=== PATIENT | male | born 1985 | race Caucasian/White ===

== ENCOUNTER 2018-04-12 13:37 | Observation (INO) ==
--- NOTE | 2018-04-12 14:14 | Emergency Department Note ---
Medical Decision Making Vital Signs: 04/12/18 14:02 Temperature 98.1 F Temperature Source Temporal Artery Scan Pulse Rate [Right Brachial] 83 Respiratory Rate 20 Blood Pressure [Right Arm] 133/84 Blood Pressure Mean [Right Arm] 100 Blood Pressure Source [Right Arm] Automatic Cuff Blood Pressure Position [Right Arm] Sitting 02 Sat by Pulse Oximetry 98 Oxygen Delivery Method Room Air [facility] [place] - General Stated complaint: stomach pain Time Seen by Provider: 04/12/18 14:14 Mode of Arrival: Family Vehicle Source of Information: Patient Limitations: No Limitations Description of Symptoms (Recalled from Triage Doc. by RN): C/O DULL INTERMITTENT PAIN IN MID EPIGASTRIC AREA WITH INTERMITTENT NAUSEA TODAYU. PATIENT STATES HE WAS MAKING A PEANUTBUTTER AND JELLY SANDWICH HE BROKE THE JAR AND AFRAID HE DIDNT GET ALL THE GLASS OUT OF HIS JELLY HEENT Symptoms (Recalled from RN notes): No Resp Symptoms (Recalled from RN notes): No Skin Symptoms (Recalled from RN notes): No MS Symptoms (Recalled from RN notes): No Functional Status (Recalled from RN notes): N/A - Related Data Home Medications Medication Instructions Recorded Confirmed No Known Home Medications 04/12/18 04/12/18 Allergies Allergy/AdvReac Type Severity Reaction Status Date / Time No Known Allergies Allergy Verified 04/12/18 14:06 - Worker's Comp Is this a Worker's Comp case?: No [facility] History - Social History Smoking Status: Current every day smoker Tobacco Type: cigarettes Alcohol Intake: current - Psychiatric History Expresses thoughts of harming self/others: None Suicide Plan Description: No Plan
--- NOTE | 2018-04-12 14:37 | Emergency Department Note ---
ED Disposition Clinical Impression: Gastrointestinal foreign body Disposition: Still a Patient Condition on Discharge: Good - Critical Care Critical Care Time: No Attestation: On 04/12/18, the high probability of a clinically significant, sudden or life threatening deterioration of the following system(s) required my full and direct attention, intervention and personal management. The time I documented below is in addition to time spent performing reported procedures but includes the following listed in this critical care notation. Medical Decision Making - Jose Inquiry Pt receiving controlled substance: No Vital Signs: 04/12/18 14:02 04/12/18 14:33 04/12/18 17:11 Temperature 98.1 F 98.2 F 98.2 F Temperature Source Temporal Artery Scan Oral Oral Pulse Rate 72 Pulse Rate [Right Brachial] 83 77 Respiratory Rate 20 16 16 Blood Pressure 124/70 Blood Pressure [Right Arm] 133/84 146/100 Blood Pressure Mean [Right Arm] 100 115 Blood Pressure Source Automatic Cuff Blood Pressure Source [Right Arm] Automatic Cuff Automatic Cuff Blood Pressure Position Sitting Blood Pressure Position [Right Arm] Sitting Sitting 02 Sat by Pulse Oximetry 98 99 Oxygen Delivery Method Room Air Room Air Room Air - Lab Data Lab Results 04/12/18 15:15: WBC 6.0, RBC 5.49, Hgb 16.9, Hct 52.4 H, MCV 95.5 H, MCH 30.9, MCHC 32.3, RDW 12.5, Plt Count 190, MPV 7.8, Neut % (Auto) 66.1, Lymph % (Auto) 25.0, [place] % (Auto) 7.1, Eos % (Auto) 1.3, Baso % (Auto) 0.5, Neut # (Auto) 3.9 , Lymph # (Auto) 1.5, [place] # (Auto) 0.4, Eos # (Auto) 0.1, Baso # (Auto) 0.0 04/12/18 15:15: Sodium 141, Potassium 4.3, Chloride 101, Carbon Dioxide 31, Anion Gap 13.3, BUN 13, Creatinine 1.06, Estimated Creat Clear 96, Estimated GFR 81, Est GFR ( Amer) 98, Glucose 94, Calcium 9.8, Total Bilirubin 0.6 , AST 20, ALT 25, Alkaline Phosphatase 117 H, Total Protein 8.5 H, Albumin 4.7, Globulin 3.8 H, Albumin/Globulin Ratio 1.2, Lipase 140 Result diagrams: 04/12/18 15:15 04/12/18 15:15 Orders (Tests/Meds): ED MEDICATIONS Generic Name Dose Route Start Last Admin Trade Name Freq PRN Reason Stop Dose Admin Sodium Chloride 1,000 mls @ 125 mls/hr 04/12/18 17:00 04/12/18 18:44 Sod Chlor 0.9% 1000ml Bag IV 05/12/18 16:59 125 mls/hr .Q8H JOLLY Administration Pantoprazole Sodium 80 mg/ 100 mls @ 10 mls/hr 04/12/18 19:15 04/12/18 20:03 Sodium Chloride IV 04/15/18 19:14 10 mls/hr .Q10H JOLLY Administration Magnesium Citrate 1 bot 04/12/18 19:14 04/12/18 20:03 Magnesium Citrate 10oz Bottle PO 04/12/18 19:15 1 bot ONCE ONE Administration Nicotine 21 mg 04/12/18 18:30 04/12/18 18:32 Nicoderm 21mg/24hr Patch TD 05/12/18 18:29 21 mg DAILY JOLLY Administration Sodium Chloride 10 ml 04/12/18 16:52 Saline Flush 10ml Syringe IV 05/12/18 16:51 NEEDED PRN Maintain IV Site Discontinued Medications Generic Name Dose Route Start Last Admin Trade Name Twan PRN Reason Stop Dose Admin Sodium Chloride 1,000 mls @ 999 mls/hr 04/12/18 15:00 04/12/18 17:46 Sod Chlor 0.9% 1000ml Bag IV 04/12/18 16:00 999 mls/hr .Q1H1M JOLLY Administration ORDERS Category Date Time Status KUB (single view) [XR KUB] Stat Exams 04/12/18 16:21 Taken XR acute abdomen series Routine Exams 04/13/18 06:00 Ordered Complete Blood Count Auto Diff AMLAB Lab 04/13/18 06:00 Ordered - Radiology Data #1 Image(s): KUB Image Reviewed: Yes I reviewed the patient's radiology image I do not see any definite foreign body on the KUB. I discussed with Dr. Henriquez. He still requests acute abdominal series in the morning. - CT Data CT Scan: Abdomen, Pelvis Time Received: 16:[address] Reviewed: Yes: I have viewed the radiologist's interpretation Findings Narrative: 13 mm foreign body in the small intestine consistent with shard of glass without evidence of perforation. - Physician Consults Physician Consulted: Florence Time: 16:32 Reason -: Admission Comment/Response: Admit for observation. If foreign body is visible on KUB, repeat acute abdominal series in the morning. General Adult HPI - General Stated complaint: stomach pain Time Seen by Provider: 04/12/18 14:14 Mode of Arrival: Family Vehicle Source of Information: Patient Limitations: No Limitations Description of Symptoms (Recalled from ER Triage Doc. by RN): C/O DULL INTERMITTENT PAIN IN MID EPIGASTRIC AREA WITH INTERMITTENT NAUSEA TODAYU. PATIENT STATES HE WAS MAKING A PEANUTBUTTER AND JELLY SANDWICH HE BROKE THE JAR AND AFRAID HE DIDNT GET ALL THE GLASS OUT OF HIS JELLY - History of Present Illness HPI narrative: Last night the patient was eating a peanut butter and jelly sandwich, when making the same which the bottom of the jelly jar broke off. He says is one large chunk of glass. He did not feel any crunching of glass in the sandwich. He has had epigastric pain since this morning. He now wonders whether he swallowed some glass. No vomiting or vomiting of blood. No passage of blood in the stool. No diarrhea. No fever. He has had nausea all day. He has a dull ache in the epigastric area and some sharp pains when he moves. No history of abdominal surgery. He is not a heavy drinker, no prescription medications or [id number] medications. - Related Data Home Medications Medication Instructions Recorded Confirmed No Known Home Medications 04/12/18 04/12/18 Allergies Allergy/AdvReac Type Severity Reaction Status Date / Time No Known Allergies Allergy Verified 04/12/18 14:06 [facility] History I have reviewed the patient's past medical history: Yes - Social History Educational Level: Completed High School Smoking Status: Current every day smoker Tobacco Type: cigarettes Alcohol Intake: never - Psychiatric History Expresses thoughts of harming self/others: None Suicide Plan Description: No Plan ROS Obtained: Yes All systems reviewed & no additional complaints - Constitutional Constitutional: Denies fever(s) - Cardiovascular Cardiovascular: Denies chest pain - Gastrointestinal Gastrointestingal: Reports: abdominal pain, nausea. Denies: diarrhea, vomiting blood, bright red blood in stools, black, tarry stools, vomiting Physical Exam - General General appearance: alert, in no apparent distress - Head Head exam: atraumatic, normocephalic, normal inspection - Eye Eye exam: Present: normal appearance, PERRL, EOMI - ENT ENT exam: Present: normal exam, normal oropharynx, mucous membranes moist, TM's normal bilaterally, normal external ear exam - Neck Neck exam: Present: normal inspection, full ROM, trachea midline. Absent: meningismus, lymphadenopathy - Chest Chest inspection: Present: normal inspection, symmetric chest wall rise. Absent : tenderness - Respiratory Respiratory exam: Present: normal lung sounds bilaterally. Absent: respiratory distress - Cardiovascular Cardiovascular exam: Present: regular rate, normal rhythm. Absent: JVD - Abdominal Exam Abdominal exam: Present: soft, tenderness, normal bowel sounds. Absent: distention, guarding Abdominal tenderness: Present: epigastrium - Extremities Exam Extremities exam: Present: normal inspection, full ROM, normal capillary refill. Absent: calf tenderness - Back Exam Back exam: Present: normal inspection. Absent: tenderness - Neurological Exam Neurological exam: Present: alert, oriented X3 - Psychiatric Psychiatric exam: Present: normal affect, normal mood - Skin Skin exam: Present: warm, dry, intact, normal color
[2018-04-12 15:34] LABS: Basophils % 0.5 % (0.1-2.0); Eosinophils # 0.1 K/mm3 (0.0-0.4); Eosinophils % 1.3 % (0.1-12.0); Hematocrit 52.4 % (42.0-52.0); Hemoglobin 16.9 g/dL (14.1-18.0); Lymphocytes # 1.5 K/mm3 (0.7-4.5); Mean Corpuscular HGB Conc 32.3 g/dL (31.8-35.4); Mean Corpuscular Hemoglobin 30.9 pg (27.0-31.2); Mean Corpuscular Volume 95.5 fl (80-94); Mean Platelet Volume 7.8 fl (7.4-10.4); Monocytes # 0.4 K/mm3 (0.1-1.0); Monocytes % 7.1 % (1.7-9.3); Neutrophils # 3.9 K/mm3 (1.8-7.8); Neutrophils % 66.1 % (37.0-80.0); Platelet Count 190 K/mm3 (142-424); Red Blood Count 5.49 M/mm3 (4.60-6.20); Red Cell Distribution Width 12.5 % (11.5-17.5)
[2018-04-12 15:40] LABS: Albumin Level 4.7 gm/dL (3.4-5.0); Albumin/Globulin Ratio 1.2 (1.1-1.8); Anion Gap 13.3 mEq/L (5-15); Bilirubin,Total 0.6 mg/dL (0.2-1.0); Calcium 9.8 mg/dL (8.5-10.1); Globulin 3.8 gm/dl (1.3-3.2); Potassium 4.3 mmoL/L (3.5-5.1); Total Protein,Serum 8.5 gm/dL (6.4-8.2)
--- NOTE | 2018-04-12 19:11 | History & Physical Report ---
HPI HPI: Patient is a 32-year-old white male. He states that yesterday evening he was making a peanut butter and jelly sandwich and the bottom of the glass jar broke off. He did not see any obvious glass shards and proceeded to make and consume the peanut butter and jelly sandwich. He states that this morning he had developed some vague upper abdominal pain and some nausea. He was concerned and therefore presented to the urgent treatment center and then was sent to the emergency department. He underwent noncontrast CT scan which revealed 13 mm linear sliver of radiopaque density within the small bowel without any evidence of any obstruction on or free air. Surgery was contacted. He underwent plain abdominal x-ray which did not reveal the lesion in question obviously. Plan was made for admission for observation. [facility] History - *Social History Educational Level: Completed High School Smoking Status: Current every day smoker Tobacco Type: cigarettes # Packs/Day (cigarettes): 1 #Yrs smoked (if former smoker): 14 Alcohol Intake: current Alcohol Intake Frequency:: 3 or more drinks per day Occupational Status: employed Housing: house Household Members: spouse, children - Psychiatric History Expresses thoughts of harming self/others: None Suicide Plan Description: No Plan *Family Hx:: Cancer, Coronary Artery Disease, Diabetes, Heart Attack, Hyperlipidemia, Hypertension Review of Systems - Review of Systems Review of systems:: pertinent systems reviewed and negative unless documented below - Constitutional Denies chills - Eyes Denies change in vision - ENT Denies abnormal hearing - *Cardiovascular Denies chest pain - *Respiratory Denies cough - *Gastrointestinal Reports abdominal pain, Denies vomiting blood, Denies bright, red blood in stools, Denies vomiting - *Genitourinary Denies painful urination - *Musculoskeletal Denies body aches - *Neurologic Denies dizziness Meds Home Medications Medication Instructions Recorded Confirmed Type No Known Home Medications 04/12/18 04/12/18 History Allergies Allergy/AdvReac Type Severity Reaction Status Date / Time No Known Allergies Allergy Verified 04/12/18 14:06 Exam Vital signs and Labs for Last 24 Hours: Temp Pulse Resp BP Pulse Ox 98.2 F 72 16 124/70 99 04/12/18 17:11 04/12/18 17:11 04/12/18 17:11 04/12/18 17:11 04/12/18 14:33 Laboratory Results - last 24 hr 04/12/18 15:15: WBC 6.0, RBC 5.49, Hgb 16.9, Hct 52.4 H, MCV 95.5 H, MCH 30.9, MCHC 32.3, RDW 12.5, Plt Count 190, MPV 7.8, Neut % (Auto) 66.1, Lymph % (Auto) 25.0, [place] % (Auto) 7.1, Eos % (Auto) 1.3, Baso % (Auto) 0.5, Neut # (Auto) 3.9 , Lymph # (Auto) 1.5, [place] # (Auto) 0.4, Eos # (Auto) 0.1, Baso # (Auto) 0.0 04/12/18 15:15: Sodium 141, Potassium 4.3, Chloride 101, Carbon Dioxide 31, Anion Gap 13.3, BUN 13, Creatinine 1.06, Estimated Creat Clear 96, Estimated GFR 81, Est GFR ( Amer) 98, Glucose 94, Calcium 9.8, Total Bilirubin 0.6 , AST 20, ALT 25, Alkaline Phosphatase 117 H, Total Protein 8.5 H, Albumin 4.7, Globulin 3.8 H, Albumin/Globulin Ratio 1.2, Lipase 140 I & O for Last 24 hours: Intake & Output 04/10/18 04/11/18 04/12/18 04/13/18 11:59 11:59 11:59 11:59 Weight 150 lb - Constitutional no acute distress - *Routine Respiratory Exam Present: CTA bilaterally - *Routine Cardiovascular Exam Present: RRR - *Routine Abdominal Exam Present: soft Comments: He has mild subjective tenderness of the epigastrium. No guarding or rebound. Results - Results Lab Results Last 24 Hours:: Laboratory Results - last 24 hr 04/12/18 15:15: WBC 6.0, RBC 5.49, Hgb 16.9, Hct 52.4 H, MCV 95.5 H, MCH 30.9, MCHC 32.3, RDW 12.5, Plt Count 190, MPV 7.8, Neut % (Auto) 66.1, Lymph % (Auto) 25.0, [place] % (Auto) 7.1, Eos % (Auto) 1.3, Baso % (Auto) 0.5, Neut # (Auto) 3.9 , Lymph # (Auto) 1.5, [place] # (Auto) 0.4, Eos # (Auto) 0.1, Baso # (Auto) 0.0 04/12/18 15:15: Sodium 141, Potassium 4.3, Chloride 101, Carbon Dioxide 31, Anion Gap 13.3, BUN 13, Creatinine 1.06, Estimated Creat Clear 96, Estimated GFR 81, Est GFR ( Amer) 98, Glucose 94, Calcium 9.8, Total Bilirubin 0.6 , AST 20, ALT 25, Alkaline Phosphatase 117 H, Total Protein 8.5 H, Albumin 4.7, Globulin 3.8 H, Albumin/Globulin Ratio 1.2, Lipase 140 Assessment and Plan - Assessment and plan all Dx Assessment and Plan for all problems:: I reviewed the CT scan images. The lesion in question may be a linear glass splinter. This appears to be in the small bowel in the general region of the umbilicus. It is unclear if this is causing his pain. I will go ahead and start him on some proton pump inhibitors as he does have a history of appreciable regular alcohol use limited to clear liquids. I will get some magnesium citrate tonight. May repeat CT scan tomorrow without contrast to reevaluate the status of the intestinal foreign body as it does not appear that this will be visible on plain abdominal x-ray.
[2018-04-12 19:30] LABS: Microscopic, Urine URINE MICROSCOPIC (MICROSCOPIC)
[2018-04-12 19:32] LABS: Appearance,Urine CLEAR (Clear); Bilirubin,Urine Negative (Negative); Blood, Urine Negative (Negative); Color,Urine YELLOW (Yellow); Glucose,Urine (UA) Negative (Negative); Ketones,Urine Negative (Negative); Leukocyte Esterase,Urine Negative (Negative); Protein,Urine Negative (Negative); Urobilinogen,Urine 0.2 EU/dl (0.2)
[2018-04-12 19:45] LABS: Bacteria,Urine Trace /lpf; Calcium Oxalate Crystals,Urine Trace /lpf; RBC,Urine Occasional #/hpf (0-3); WBC,Urine Occasional #/hpf (0-3)
[2018-04-13 06:29] LABS: Basophils % 0.3 % (0.1-2.0); Eosinophils # 0.1 K/mm3 (0.0-0.4); Eosinophils % 2.1 % (0.1-12.0); Lymphocytes # 1.9 K/mm3 (0.7-4.5); Lymphocytes % 42.2 K/mm3 (10-50); Mean Corpuscular HGB Conc 32.2 g/dL (31.8-35.4); Mean Corpuscular Hemoglobin 31.1 pg (27.0-31.2); Mean Corpuscular Volume 96.5 fl (80-94); Mean Platelet Volume 7.7 fl (7.4-10.4); Monocytes # 0.3 K/mm3 (0.1-1.0); Neutrophils # 2.2 K/mm3 (1.8-7.8); Neutrophils % 48.4 % (37.0-80.0); Platelet Count 147 K/mm3 (142-424); Red Blood Count 4.69 M/mm3 (4.60-6.20); Red Cell Distribution Width 12.4 % (11.5-17.5); White Blood Count 4.5 K/mm3 (4.8-10.8)
[2018-04-13 06:44] LABS: Hematocrit 45.7 % (42.0-52.0); Hemoglobin 14.7 g/dL (14.1-18.0)
--- NOTE | 2018-04-13 06:51 | Progress Note ---
Subjective Patient reports: pain is less Narrative: Patient states that the upper abdominal pain has improved. He did take magnesium citrate with bowel movements overnight. No bleeding. Exam Vital signs and Labs for Last 24 Hours: Temp Pulse Resp BP Pulse Ox 97.5 F L 74 16 114/75 98 04/13/18 03:57 04/13/18 03:57 04/13/18 03:57 04/13/18 03:57 04/13/18 03:57 Laboratory Results - last 24 hr 04/12/18 15:15: WBC 6.0, RBC 5.49, Hgb 16.9, Hct 52.4 H, MCV 95.5 H, MCH 30.9, MCHC 32.3, RDW 12.5, Plt Count 190, MPV 7.8, Neut % (Auto) 66.1, Lymph % (Auto) 25.0, [place] % (Auto) 7.1, Eos % (Auto) 1.3, Baso % (Auto) 0.5, Neut # (Auto) 3.9 , Lymph # (Auto) 1.5, [place] # (Auto) 0.4, Eos # (Auto) 0.1, Baso # (Auto) 0.0 04/12/18 15:15: Sodium 141, Potassium 4.3, Chloride 101, Carbon Dioxide 31, Anion Gap 13.3, BUN 13, Creatinine 1.06, Estimated Creat Clear 96, Estimated GFR 81, Est GFR ( Amer) 98, Glucose 94, Calcium 9.8, Total Bilirubin 0.6 , AST 20, ALT 25, Alkaline Phosphatase 117 H, Total Protein 8.5 H, Albumin 4.7, Globulin 3.8 H, Albumin/Globulin Ratio 1.2, Lipase 140 04/12/18 19:21: Urine Color Yellow, Urine Appearance Clear, Urine pH 6.0, Ur Specific [place] 1.010, Urine Protein Negative, Urine Glucose (UA) Negative, Urine Ketones Negative, Urine Blood Negative, Urine Nitrate Negative, Urine Bilirubin Negative, Urine Urobilinogen 0.2, Ur Leukocyte Esterase Negative, Urine RBC Occasional, Urine WBC Occasional, Ur Squamous Epith Cells 3-5, Calcium Oxalate Crystal Trace, Urine Bacteria Trace 04/13/18 05:15: WBC 4.5 L, RBC 4.69, Hgb 14.7 D, Hct 45.7, MCV 96.5 H, MCH 31.1 , MCHC 32.2, RDW 12.4, Plt Count 147, MPV 7.7, Neut % (Auto) 48.4, Lymph % (Auto ) 42.2, [place] % (Auto) 7.0, Eos % (Auto) 2.1, Baso % (Auto) 0.3, Neut # (Auto) 2.2, Lymph # (Auto) 1.9, [place] # (Auto) 0.3, Eos # (Auto) 0.1, Baso # (Auto) 0.0 I & O for Last 24 hours: Intake & Output 04/10/18 04/11/18 04/12/18 04/13/18 11:59 11:59 11:59 11:59 Weight 150 lb - *Routine Abdominal Exam Present: soft. Absent: tenderness Progress Note: A&P Assessment and Plan for All Diagnoses:: Recheck CT scan to assess status of intestinal foreign body.
[2018-04-13 08:08] VITALS: BP 131/62
--- NOTE | 2018-04-13 08:32 | Pharmacy Consult Notes ---
[facility] Pharmacy VTE Monitoring - Patient Demographics Admission date: 04/12/18 Report Date: 04/13/18 Time: 08:32 Allergies/Adverse Reactions: Patient Allergies No Known Allergies Allergy (Verified 04/12/18 14:06) Height: 1.7 m Weight: 68.039 kg Patient Problems: Current Active Problems Gastrointestinal foreign body (Acute) - VTE Risk Labs: VTE Related Lab Results Hgb 14.7 g/dL (14.1-18.0) D 04/13/18 05:15 Hct 45.7 % (42.0-52.0) 04/13/18 05:15 Plt Count 147 K/mm3 (142-424) 04/13/18 05:15 BUN 13 mg/dL (7-18) 04/12/18 15:15 Creatinine 1.06 mg/dL (0.70-1.30) 04/12/18 15:15 Estimated Creat Clear 96 mL/min (0-300) 04/12/18 15:15 Was VTE Risk Assessment Performed: Yes VTE Score: 2 VTE Risk Level: Very Low Risk Clinical Trial Participant: No - Prophylaxis VTE Prophylaxis Ordered?: Yes Types of VTE Prophylaxis: TEDS Knee High Location of Applied Device: Refused
--- NOTE | 2018-04-13 14:36 | Discharge Summary ---
General - General Admission date:: 04/12/18 Discharge date: 04/13/18 HPI HPI: Patient is a 32-year-old white male. He states that yesterday evening he was making a peanut butter and jelly sandwich and the bottom of the glass jar broke off. He did not see any obvious glass shards and proceeded to make and consume the peanut butter and jelly sandwich. He states that this morning he had developed some vague upper abdominal pain and some nausea. He was concerned and therefore presented to the urgent treatment center and then was sent to the emergency department. He underwent noncontrast CT scan which revealed 13 mm linear sliver of radiopaque density within the small bowel without any evidence of any obstruction on or free air. Surgery was contacted. He underwent plain abdominal x-ray which did not reveal the lesion in question obviously. Plan was made for admission for observation. Hospital Course Hospital Course: From the emergency department. Initially he was having some epigastric discomfort. He was started on Protonix. He was given a clear liquid diet. He tolerated this without difficulty. He was limited to Tylenol for any discomfort. Patient was given a nicotine patch. The following morning he felt better. He states that his discomfort was more in the lower abdomen. He underwent follow-up CT scan without contrast. This revealed the linear density consistent with possible sliver of glass in the cecum. He was doing well that afternoon and plan was made for discharge home. Patient is instructed to slowly advance to his regular diet. He is given no additional prescriptions. He will follow-up in the office in about [address] scan prior to his office appointment to assess for passage of the internal foreign body. He is to seek medical attention immediately if he has significant abdominal pain. Objective Vital signs: Temp Pulse Resp BP Pulse Ox 97.8 F 64 18 131/62 98 04/13/18 08:00 04/13/18 08:00 04/13/18 08:00 04/13/18 08:00 04/13/18 09:00 Results Labs on day of discharge: Labs from last 24 hours 04/13/18 04/12/18 04/12/18 05:15 19:21 15:15 WBC 4.5 L RBC 4.69 Hgb 14.7 D Hct 45.7 MCV 96.5 H MCH 31.1 MCHC 32.2 RDW 12.4 Plt Count 147 MPV 7.7 Neut % (Auto) 48.4 Lymph % (Auto) 42.2 [place] % (Auto) 7.0 Eos % (Auto) 2.1 Baso % (Auto) 0.3 Neut # (Auto) 2.2 Lymph # (Auto) 1.9 [place] # (Auto) 0.3 Eos # (Auto) 0.1 Baso # (Auto) 0.0 Sodium 141 Potassium 4.3 Chloride 101 Carbon Dioxide 31 Anion Gap 13.3 BUN 13 Creatinine 1.06 Estimated Creat Clear 96 Estimated GFR 81 Est GFR ( Amer) 98 Glucose 94 Calcium 9.8 Total Bilirubin 0.6 AST 20 ALT 25 Alkaline Phosphatase 117 H Total Protein 8.5 H Albumin 4.7 Globulin 3.8 H Albumin/Globulin Ratio 1.2 Lipase 140 Urine Color Yellow Urine Appearance Clear Urine pH 6.0 Ur Specific [place] 1.010 Urine Protein Negative Urine Glucose (UA) Negative Urine Ketones Negative Urine Blood Negative Urine Nitrate Negative Urine Bilirubin Negative Urine Urobilinogen 0.2 Ur Leukocyte Esterase Negative Urine RBC Occasional Urine WBC Occasional Ur Squamous Epith Cells 3-5 Calcium Oxalate Crystal Trace Urine Bacteria Trace 04/12/18 15:15 WBC 6.0 RBC 5.49 Hgb 16.9 Hct 52.4 H MCV 95.5 H MCH 30.9 MCHC 32.3 RDW 12.5 Plt Count 190 MPV 7.8 Neut % (Auto) 66.1 Lymph % (Auto) 25.0 [place] % (Auto) 7.1 Eos % (Auto) 1.3 Baso % (Auto) 0.5 Neut # (Auto) 3.9 Lymph # (Auto) 1.5 [place] # (Auto) 0.4 Eos # (Auto) 0.1 Baso # (Auto) 0.0 Sodium Potassium Chloride Carbon Dioxide Anion Gap BUN Creatinine Estimated Creat Clear Estimated GFR Est GFR ( Amer) Glucose Calcium Total Bilirubin AST ALT Alkaline Phosphatase Total Protein Albumin Globulin Albumin/Globulin Ratio Lipase Urine Color Urine Appearance Urine pH Ur Specific [place] Urine Protein Urine Glucose (UA) Urine Ketones Urine Blood Urine Nitrate Urine Bilirubin Urine Urobilinogen Ur Leukocyte Esterase Urine RBC Urine WBC Ur Squamous Epith Cells Calcium Oxalate Crystal Urine Bacteria Discharge Plan - Patient Discharge Instructions ACTIVITY: Continue current activity DIET: advance to your usual diet - Follow up Plan Follow up with: Grover Henriquez MD [Primary Care Provider] - 04/22/18 Disposition: Home, Self-[facility] Medications: Home Medications Medication Instructions Recorded Confirmed Type No Known Home Medications 04/12/18 04/12/18 History Prescriptions/Medication Reconciliation: No Action No Known Home Medications Other Amb Orders: CT abdomen pelvis wo con Time Frame: 04/22/18, Location: Radiology
== END 2018-04-13 15:15 | disposition home or self-care (01) ==
LOC: UTC 13:37 → 2ND 13:37
PROVIDERS: ADMIT Surgery; ATTEND Surgery
CPT/HCPCS: 36415; 74000; 74018; 74021; 74022; 74176; 80053; 81001; 83690; 85025; 96365; 96367; 99283; G0378

== ENCOUNTER → 2018-04-22 09:05 | Outpatient (CLI) | payer BC, SELFPAY ==
--- NOTE | 2018-04-22 09:07 | CT_ITS ---
CT abdomen pelvis wo con CLINICAL HISTORY: Observation for movement of ingested foreign body TECHNIQUE: Axial images obtained with sagittal and coronal reformats. All CT scans at this facility use one or more dose reduction techniques, viz.: automated exposure control; ma/kV adjustment per patient size (including targeted exams where dose is matched to indication; i.e. head) or iterative reconstruction technique. COMPARISON: CT scan abdomen pelvis noncontrast 04/13/2018 PROCEDURE: No IV or oral contrast is used.. FINDINGS: Lung bases: The lower lung salazar are clear with no infiltrate or pleural fluid seen ABDOMEN: Liver: No masses or biliary dilatation. Gallbladder: Nondistended. No radio opaque stones. Pancreas: No masses or peripancreatic fluid collections. Spleen: Unremarkable. Adrenals: Unremarkable Kidneys/ureters: No masses. No renal calculi. No hydronephrosis. No perinephric fluid collections. No ureteral dilatation or obvious ureteral calculi. PELVIS: Reproductive: Bladder: Nondistended. No obvious masses. Appendix: A do not definitely identify the appendix but there are no pericecal inflammatory changes. ABDOMEN & PELVIS: Stomach bowel: Nondistended. No obvious mass or thickening. There is a tiny high density in the lower descending colon which is actually smaller than the chart of glass seen on the previous study but could be a broken off piece of glass sitting near the descending colon sigmoid junction. There is large amount stool in the descending colon sigmoid and rectum. No additional foreign bodies are identified. Peritoneum: No abnormal fluid collections. No obvious inflammatory changes. Lymph nodes: No enlarged lymph nodes apparent. Vasculature: No evidence of abdominal aortic aneurysm. No retroperitoneal hemorrhage evident. Bones: Unremarkable appearing bony structures. No lytic or blastic changes. No obvious fractures. IMPRESSION: Possible tiny fragment of the shard of glass remaining in the lower descending colon, otherwise unremarkable study.
== END ==
PROVIDERS: PCP Surgery; Visit Provider Surgery
DX: T18.9XXA Foreign body of alimentary tract, part unspecified, initial encounter (principal)
CPT/HCPCS: 74176

== ENCOUNTER → 2018-05-13 10:00 | Outpatient (CLI) | payer BC, SELFPAY ==
--- NOTE | 2018-05-13 10:13 | CT_ITS ---
CT abdomen pelvis w con CLINICAL INDICATION: Follow-up foreign body/swallowed glass ITS.REASON: SWALLOWED FB ORDERING PHYSICIAN: Grover Henriquez MD PATIENT AGE: 33 years COMPARISON: 218 TECHNIQUE: Axial images obtained with sagittal and coronal reformats. All CT scans at the facility use one or more dose reduction, viz: automated exposure control; ma/kV adjustment per patient size (including targeted exams where dose is matched to indication; i.e. head); or iterative reconstruction technique. PROCEDURE: Oral Contrast: None IV Contrast: None . FINDINGS: Lung bases are clear. The liver, spleen, adrenal glands, pancreas, and kidneys show no acute finding. 8 mm isodensity lower pole right kidney which may be due to small cyst. Nonobstructing 2 mm stone lower pole right kidney. No intestinal obstruction or free air. No radio opaque foreign body evident within the intestinal tract. Previously noted shard of glass in the descending colon no longer apparent. No pelvic mass or abnormal fluid collection or focal inflammatory change. No acute bony anomalies. IMPRESSION: 1. No radio opaque foreign body apparent within the abdomen. Previously noted shard of glass in the descending colon no longer apparent 2. Small right renal cyst with nonobstructing 2 mm stone in the lower pole the right kidney
== END ==
PROVIDERS: Visit Provider Surgery
DX: T18.9XXA Foreign body of alimentary tract, part unspecified, initial encounter (principal)
CPT/HCPCS: 74177

== ENCOUNTER 2021-02-26 11:11 | Emergency (ER) | payer SELFPAY ==
[2021-02-26 11:13] VITALS: BP 143/92; PULSE 91; RESP 16; TEMP 36.4; O2SAT 98; BMI 25.0
--- NOTE | 2021-02-26 11:20 | ECG_ITS ---
APPROVED REPORT Exam: Resting ECG HR:82 bpm ECG Measurements Heart Rate 82 AXES RI 120 P 44 QRSd 98 QRS 59 QT 374 T 49 QTc 436 Conclusion Normal sinus rhythm Normal ECG Electronically signed by : Thomas Bobo, 02/27/2021 21:20:28
[2021-02-26 11:34] VITALS: BP 139/89; PULSE 82; RESP 18; O2SAT 97
--- NOTE | 2021-02-26 11:38 | CT_ITS ---
PROCEDURE: CT FACIAL BONES WO CON CLINICAL HISTORY: trauma Posttraumatic pain left side of the face COMPARISON: No exams were available for comparison TECHNIQUE: Axial images obtained with sagittal and coronal reformats. All CT scans at the facility use one or more dose reduction, viz: automated exposure control, ma/kV adjustment per patient size (including targeted exams where dose is matched to indication, i.e. head), or iterative reconstruction technique. FINDINGS: There is displaced fracture at the base of the right mandibular condyle. The proximal fracture fragment is displaced laterally by 7 mm with overlap of the fracture fragments. The mandibular condyle is slightly displaced anteriorly but not frankly dislocated.. Laceration is noted along the left aspect of the 10. There is a small density noted in the left parasymphyseal region of the chin measuring approximately 2 mm and could represent a foreign body. No sinus air-fluid level. Multiple caries are noted. IMPRESSION: Displaced fracture at the base of the right mandibular condyle Soft tissue laceration of the left aspect of the chin with possible small foreign body in the left aspect of the chin Dictated by: Dion Badillo MD 02/26/2021 12:38 Dion Badillo MD in [facility] 02/26/2021 12:38
--- NOTE | 2021-02-26 11:38 | CT_ITS ---
PROCEDURE: CT HEAD/BRAIN WO CON CLINICAL INDICATION: trauma Head injury with headache/pain, contusion, abrasion or hematoma, loss of consciousness COMPARISON: No exams were available for comparison TECHNIQUE: Axial images obtained. All CT scans at the facility use one or more dose reduction, viz: automated exposure control, ma/kV adjustment per patient size (including targeted exams where dose is matched to indication, i.e. head), or iterative reconstruction technique. FINDINGS: No midline shift, mass effect, intracranial hemorrhage, hydrocephalus, or extra-axial fluid collection is evident. The calvarium has an unremarkable appearance. No mastoid effusion. No sinus air-fluid level. IMPRESSION: No acute intracranial finding Dictated by: Dion Badillo MD 02/26/2021 12:30 Dion Badillo MD in [facility] 02/26/2021 12:30
[2021-02-26 11:57] LABS: Basophils % 0.2 % (0.1-2.0); Eosinophils # 0.1 K/mm3 (0.0-0.4); Eosinophils % 0.7 % (0.1-12.0); Hematocrit 49.3 % (42.0-52.0); Hemoglobin 15.9 g/dL (14.1-18.0); Lymphocytes # 1.3 K/mm3 (0.7-4.5); Lymphocytes % 18.2 % (10-50); Mean Corpuscular HGB Conc 32.4 g/dL (31.8-35.4); Mean Corpuscular Hemoglobin 31.5 pg (27.0-31.2); Mean Corpuscular Volume 97.2 fl (80-94); Mean Platelet Volume 7.8 fl (7.4-10.4); Monocytes # 0.7 K/mm3 (0.1-1.0); Monocytes % 9.5 % (1.7-9.3); Neutrophils # 5.1 K/mm3 (1.8-7.8); Neutrophils % 71.3 % (37.0-80.0); Platelet Count 181 K/mm3 (142-424); Red Blood Count 5.07 M/mm3 (4.60-6.20); White Blood Count 7.1 K/mm3 (4.8-10.8)
--- NOTE | 2021-02-26 12:01 | CT_ITS ---
PROCEDURE: CT CERVICAL SPINE WO CON CLINICAL INDICATION: trauma Neck injury with pain, contusion/abrasion or hematoma, cervical sprain/strain the COMPARISON: No exams were available for comparison TECHNIQUE: Axial images obtained with sagittal and coronal reformats. All CT scans at the facility use one or more dose reduction, viz: automated exposure control, ma/kV adjustment per patient size (including targeted exams where dose is matched to indication, i.e. head), or iterative reconstruction technique. Axial spiral CT scanning performed of the cervical spine beginning at the base of the skull and continuing to the upper T-spine. 3-D multiplanar reconstruction with 3-D manipulation of volumetric data set in image rendering was completed by the radiologist and/or technologist with the supervision of the radiologist on independent workstation. FINDINGS: There is straightening/reversal of the normal lordosis which may be due to patient positioning or muscle spasm. No fracture or dislocation. No lytic or blastic change. Small calcific density is present along the anterior superior aspect of the C7 vertebral body nonspecific suggesting a small limbus vertebra. Lung apices are clear. IMPRESSION: Slight reversal of cervical lordosis otherwise negative Dictated by: Dion Badillo MD 02/26/2021 12:33 Dion Badillo MD in [facility] 02/26/2021 12:33
--- NOTE | 2021-02-26 12:19 | PC.NURSE ---
Rad called pt refusing xrays at this time
[2021-02-26 12:26] VITALS: BP 159/103; PULSE 69; RESP 18; O2SAT 100
[2021-02-26 12:31] LABS: Alanine Aminotransferase 27 U/L (12-78); Albumin Level 4.9 g/dl (3.5-5.0); Albumin/Globulin Ratio 1.6 (1.1-1.8); Alkaline Phosphatase 86 U/L (38-126); Anion Gap 12.5 mEq/L (5-15); Aspartate Amino Transferase 30 U/L (17-59); Bilirubin,Total 0.9 mg/dl (0.2-1.3); Blood Urea Nitrogen 17 mg/dl (9-20); Calcium 9.9 mg/dl (8.4-10.2); Carbon Dioxide 28 mmol/L (22.0-30.0); Chloride 101 mmol/L (98-107); Creatinine Clearance Estimated 106 mL/min (50-200); Estimated Glomerular Filt Rate 85 ml/min (>60); GFR (African American) 103 ML/MIN (>60); Glucose 92 mg/dl (74-100); Potassium 4.5 mmoL/L (3.5-5.1); Sodium 137 mmol/L (136-145); Total Protein,Serum 7.9 g/dl (6.3-8.2)
[2021-02-26 12:46] LABS: Troponin I < 0.01 ng/ml (0.00-0.034)
--- NOTE | 2021-02-26 13:20 | PC.NURSE ---
DR FLORIAN SPEAKING WITH [facility] ,
--- NOTE | 2021-02-26 13:28 | PC.NURSE ---
PT [facility] F/U IN CLINIC AT TOMORROW THEY WILL CALL PT WITH APPT TIME
[2021-02-26 13:30] VITALS: BP 163/104; PULSE 74; O2SAT 100
--- NOTE | 2021-02-26 13:37 | HMH.EDFALL ---
ED Disposition Clinical Impression: Fracture, mandible, subcondylar, open Qualifiers: Encounter type: initial encounter Laterality: right Qualified Code(s): S02.621B - Fracture of subcondylar process of right mandible, initial encounter for open fracture Laceration of chin Qualifiers: Encounter type: initial encounter Qualified Code(s): S01.81XA - Laceration without foreign body of other part of head, initial encounter Disposition: Home, Self-Care Condition on Discharge: Good Instructions: Skull and Facial Fracture Prescriptions: Hydrocod/Acet 5/325 mg [[place] 5/325mg tablet] 1 tab PO Q4HP PRN #10 tablet PRN Reason: Moderate Pain Transmission Status: Sent to [facility] Amoxicillin/Potassium Clav [Amox-Clav 875-125 mg Tablet] 1 tab PO BID #14 tab Transmission Status: Pending to [facility] Referrals: Dr. Reynaldo Estrella [Other] (appointment on 02/27/21) - Critical Care Critical Care Time: No Attestation: On 02/26/21, the high probability of a clinically significant, sudden or life threatening deterioration of the following system(s) required my full and direct attention, intervention and personal management. The time I documented below is in addition to time spent performing reported procedures but includes the following listed in this critical care notation. Medical Decision Making - Medical Records Medical records reviewed: Yes: I reviewed the patient's medical records. - Jose Inquiry Pt receiving controlled substance: Yes Jose was queried for this patient: No Reason not queried -: Emergent pt cond-no time Risks and benefits of using a controlled substance: were discussed with pt by me Vital Signs: 02/26/21 11:13 02/26/21 11:34 02/26/21 12:26 Temperature 97.5 F L Temperature Source Oral Pulse Rate 82 69 Pulse Rate [Right Radial] 91 H Respiratory Rate 16 18 18 Blood Pressure 139/89 159/103 H Blood Pressure [Right Arm] 143/92 H Blood Pressure Mean Blood Pressure Mean [Right Arm] 109 Blood Pressure Source [Right Arm] Automatic Cuff 02 Sat by Pulse Oximetry 98 97 100 Oxygen Delivery Method Room Air Room Air 02/26/21 13:30 02/26/21 14:00 Temperature Temperature Source Pulse Rate 74 84 Pulse Rate [Right Radial] Respiratory Rate Blood Pressure 163/104 H 156/97 H Blood Pressure [Right Arm] Blood Pressure Mean 117 Blood Pressure Mean [Right Arm] Blood Pressure Source [Right Arm] 02 Sat by Pulse Oximetry 100 98 Oxygen Delivery Method Room Air - Lab Data Lab Results 02/26/21 11:45: WBC 7.1, RBC 5.07, Hgb 15.9, Hct 49.3, MCV 97.2 H, MCH 31.5 H, MCHC 32.4, RDW 13.0, Plt Count 181, MPV 7.8, Neut % (Auto) 71.3, Lymph % (Auto) 18.2, [place] % (Auto) 9.5 H, Eos % (Auto) 0.7, Baso % (Auto) 0.2, Neut # (Auto) 5.1, Lymph # (Auto) 1.3, [place] # (Auto) 0.7, Eos # (Auto) 0.1, Baso # (Auto) 0.0 02/26/21 11:45: Sodium 137, Potassium 4.5, Chloride 101, Carbon Dioxide 28, Anion Gap 12.5, BUN 17, Creatinine 1.00, Estimated Creat Clear 106, Estimated GFR 85, Est GFR ( Amer) 103, Glucose 92, Calcium 9.9, Total Bilirubin 0.9, AST 30, ALT 27, Alkaline Phosphatase 86, Troponin I < 0.01, Total Protein 7.9, Albumin 4.9, Globulin 3.0, Albumin/Globulin Ratio 1.6 Result diagrams: 02/26/21 11:45 02/26/21 11:45 Orders (Tests/Meds): ED MEDICATIONS Discontinued Medications Generic Name Dose Route Start Last Admin Trade Name Twan PRN Reason Stop Dose Admin Hydromorphone HCl 1 mg 02/26/21 13:19 02/26/21 13:27 Hydromorphone 2mg/Ml Syringe IV 02/26/21 13:20 1 mg ONCE ONE Administration Sodium Chloride 1,000 mls @ 999 mls/hr 02/26/21 11:45 02/26/21 11:50 Sod Chlor 0.9% 1000ml Bag IV 02/26/21 12:45 999 mls/hr .Q1H1M JOLLY Administration Morphine Sulfate 4 mg 02/26/21 11:38 02/26/21 11:50 Morphine 4mg/Ml Syringe IV 02/26/21 11:39 4 mg ONCE ONE Administration Ondansetron HCl 4 mg 02/26/21 11:38 02/26/21 11:50 Ondanset
[2021-02-26 14:00] VITALS: BP 156/97; PULSE 84; O2SAT 98
[2021-02-26 15:09] VITALS: BP 146/86; PULSE 69; RESP 16; TEMP 36.4; O2SAT 98
== END 2021-02-26 15:09 | disposition home or self-care (01) ==
PROVIDERS: Emergency Provider Emergency Medicine
DX: S01.81XA Laceration without foreign body of other part of head, initial encounter (principal); S02.621 Fracture of subcondylar process of right mandible; W01.0XXA Fall on same level from slipping, tripping and stumbling without subsequent striking against object, initial encounter; Y92.017 Garden or yard in single-family (private) house as the place of occurrence of the external cause; Z23 Encounter for immunization; F10.10 Alcohol abuse, uncomplicated
CPT/HCPCS: 12013; 70450; 70486; 72125; 80053; 84484; 85025; 90471; 90715; 93005; 96365; 96375; 96376; 99282; J2405

== ENCOUNTER → 2021-11-12 19:26 | Outpatient (CLI) | payer OTHER, SELFPAY | PROVIDERS: Visit Provider Nurse Practitioner Family | DX: U07.1 COVID-19 (principal) | CPT/HCPCS: C9803; U0003; U0005 ==

== ENCOUNTER → 2021-11-21 10:13 | Outpatient (CLI) | payer OTHER, SELFPAY | PROVIDERS: Visit Provider Nurse Practitioner | DX: U07.1 COVID-19 (principal) | CPT/HCPCS: C9803; U0003; U0005 ==

== ENCOUNTER 2021-11-28 12:43 | Emergency (ER) | payer BC, SELFPAY ==
[2021-11-28 13:37] VITALS: BP 156/88; PULSE 91; RESP 14; TEMP 37.4; O2SAT 97; BMI 24.3
--- NOTE | 2021-11-28 13:39 | HMH.EDUTC ---
[facility] Disposition Clinical Impression: Lymphadenopathy of head and neck region Pharyngitis Qualifiers: Pharyngitis/tonsillitis etiology: unspecified etiology Qualified Code(s): J02.9 - Acute pharyngitis, unspecified Disposition: Home, Self-Care Condition on Discharge: Good Instructions: Sore Throat, DI for Pharyngitis/Tonsillopharyngitis -- Adult, DI for Lymphadenopathy Additional Instructions: Drink plenty of fluids. Take tylenol or ibuprofen for pain or fever. Take the medications as directed. Follow up with your regular doctor. GO TO THE ER FOR ANY WORSENING SYMPTOMS Prescriptions: Ibuprofen [Ibuprofen 800mg Tablet] 800 mg PO Q8HP PRN #30 tab PRN Reason: Moderate Pain Transmission Status: Pending to [facility] Amoxicillin/Potassium Clav [Augmentin 875-125 Tablet] 1 tab PO Q12H 10 Days #20 tab Transmission Status: Pending to [facility] Referrals: Provider,Referral, MD [Primary Care Provider] - Forms: Work/School Release Time of Disposition: 14:23 Medical Decision Making - Medical Records Medical records reviewed: No: I reviewed the patient's medical records. - Jose Inquiry Pt receiving controlled substance: No Vital Signs: 11/28/21 13:37 Temperature 99.3 F Temperature Source Oral Pulse Rate [Left] 91 H Respiratory Rate 14 Blood Pressure [Right Arm] 156/88 H Blood Pressure Mean [Right Arm] 110 02 Sat by Pulse Oximetry 97 Orders (Tests/Meds): ED MEDICATIONS Discontinued Medications Generic Name Dose Route Start Last Admin Trade Name Freq PRN Reason Stop Dose Admin Ceftriaxone Sodium 1 gm 11/28/21 13:43 Ceftriaxone 1gm Vial IM 11/28/21 13:44 ONCE ONE Lidocaine HCl 0 ml 11/28/21 13:43 Lidocaine 1% 5ml Pf Vial IM 11/28/21 13:44 ONCE ONE [facility] HPI - General Stated complaint: sore throat Time Seen by Provider: 11/28/21 13:39 - History of Present Illness Provider Complaint: He states that he has had a swollen painful lymph node on the right side of his neck and throat for the past 3 days or so. It is painful for him to open his jaw very wide. It is tender to touch also. He denies any fever or chills. He had covid-19 around 3 weeks ago. He states that he got completely better from that. - Related Data Previous Rx's Medication Instructions Recorded Amoxicillin/Potassium Clav 1 tab PO Q12H 10 Days #20 tab 11/28/21 [Augmentin 875-125 Tablet] Ibuprofen [Ibuprofen 800mg 800 mg PO Q8HP PRN #30 tab 11/28/21 Tablet] Allergies Allergy/AdvReac Type Severity Reaction Status Date / Time No Known Allergies Allergy Verified 11/12/21 16:40 [facility] History - Hepatitis A Screen Attestation statement:: This patient has been screened for Hepatitis A risk factors. I have reviewed the patient's past medical history: Yes Other Surgeries: Yes: No Previous Surgery - Social History Smoking Status: Current every day smoker Tobacco Type: cigarettes # Packs/Day (cigarettes): 1 #Yrs smoked (if former smoker): 14 Alcohol Intake: never Alcohol Intake Frequency:: 3 or more drinks per day Substance Use Type: denies use Occupational Status: employed Housing: house Household Members: spouse, children Family Hx:: Cancer, Coronary Artery Disease, Diabetes, Heart Attack, Hyperlipidemia, Hypertension ROS Obtained: Yes All systems reviewed & no additional complaints - Constitutional Constitutional: Denies chills, Denies fever(s), Denies poor appetite, Denies malaise - Eyes Eyes: Denies eye discharge - ENT Ears, Nose, Mouth, and Throat: Reports as per HPI - Cardiovascular Cardiovascular: Denies chest pain - Respiratory Respiratory: Denies chest congestion, Denies cough, Denies dyspnea, Denies stridor, Denies wheezing - Gastrointestinal Gastrointestingal: Denies: abdominal pain, diarrhea, nausea, vomiting - Musculoskeletal Musculoskeletal: Denies joint pain - Integumentary/Breasts Skin/Breast: D
[2021-11-28 14:25] VITALS: BP 156/88; PULSE 91; RESP 14; TEMP 37.4
== END 2021-11-28 14:26 | disposition home or self-care (01) ==
PROVIDERS: Emergency Provider Nurse Practitioner Family
DX: R59.0 Localized enlarged lymph nodes (principal); J02.9 Acute pharyngitis, unspecified; Z86.16 Personal history of COVID-19; F17.210 Nicotine dependence, cigarettes, uncomplicated
CPT/HCPCS: 96372; 99202; G0463; J0696